=== PATIENT | male | born 1960 | race Caucasian/White ===

== ENCOUNTER → 2016-12-18 | Outpatient (CLI) | payer MEDICARE, OTHER ==
[~2016-12-18] MED LIST: CEROTAB2; CETI10 PO; CITA20TA4 PO; CLON1TAB PO; KONS520C PO; MOME17I; NIAC1TAB; OMEG100037 PO; OXYB5TAB PO; RISP3TAB2 PO; TOPI25TA2 PO
--- NOTE | 2016-12-18 11:32 | RADRPT ---
EXAM DATE/TIME: 12/18/2016 10:02 [place] COMPARISON: No previous studies available for comparison. INDICATIONS : Dysphagia. FLUORO TIME: 1.1 minutes IMAGE COUNT: 1 CONTRAST: Dose as prescribed by speech pathologist. MEDICAL HISTORY : Unobtainable. SURGICAL HISTORY : Unobtainable. ENCOUNTER: Initial ACUITY: 1 day PAIN SCORE: Non-responsive. LOCATION: Esophagus. FINDINGS: A modified barium swallow was performed with speech pathology. Patient was given a variety of liquids to swallow. There is laryngeal penetration worse with thin liquids. There is no pamella aspiration. For a full detailed report, see report by the speech pathologist. CONCLUSION: Laryngeal penetration without pamella aspiration. Christian Rangel MD FACR on December 18, 2016 at 11:30 Board Certified Radiologist. This report was verified electronically.
== END ==
LOC: HRAD 10:02
PROVIDERS: ATTEND Family Medicine Geriatric Medicine
DX: R13.10 Dysphagia, unspecified (principal)
CPT/HCPCS: 74230; 92611; G8996; G8997; G8998